=== PATIENT | female | born 2005 | race Caucasian/White ===

== ENCOUNTER 2023-10-06 01:01 | Inpatient (IN) | payer OTHER ==
[2023-10-06] VITALS (57 sets, daily range): BP systolic 98–134; BP diastolic 68–97; TEMP 97.8–98.4; O2SAT 98–100
[~2023-10-06] VITALS: Ht 170.2 cm; Wt 61.7 kg
[2023-10-06] MEDS ORDERED: SERT25TA PO (01:26)
[2023-10-06 01:54] LABS: BASOPHILS # (AUTO) 0.1 K/UL (0.0-0.2); BASOPHILS % (AUTO) 0.6 % (0.0-2.0); EOSINOPHILS # (AUTO) 0.1 K/uL (0.0-0.7); EOSINOPHILS % (AUTO) 1.1 % (0.0-7.0); HEMATOCRIT 37.7 % (31.2-41.9); HEMOGLOBIN 12.7 g/dL (10.9-14.3); LYMPHOCYTES % (AUTO) 33.5 % (20.5-74.5); MEAN CORPUSCULAR HGB CONC 34 g/dL (32.3-35.6); MONOCYTES # (AUTO) 0.9 K/uL (0.1-1.30); MONOCYTES % (AUTO) 9.5 % (0-11); NEUTROPHILS % (AUTO) 55.3 % (31.5-64.5); PLATELET COUNT (AUTO) 272 K/uL (179-408); RED BLOOD CELL COUNT(AUTO) 3.73 MIL/uL (3.63-4.92); RED CELL DISTRIBUTION WIDTH 13.9 % (12.3-17.7)
[2023-10-06 01:56] LABS: SITE, VBG VBG - N/A; VBG AaDO2 52.5 mmHg; VBG BASE EXCESS -0.3 mmol/L (-3-3); VBG HCO3 25.9 mmol/L (22-27); VBG MetHb 0.4 % (0.0-0.5); VBG O2HB 49.1 %; VBG PO2 < 40.5 mmHg (25.0-35.0); VBG TOTAL HEMOGLOBIN 14.6 G/dL (12.0-16.0)
[2023-10-06 01:57] LABS: DIFFERENTIAL COMMENT 1
[2023-10-06 01:58] LABS: CALCIUM 8.7 mg/dL (8.5-10.1); CARBON DIOXIDE 26 mmol/L (21-32); CHLORIDE 106 mmol/L (98-107); CREATININE 0.7 mg/dL (0.6-1.3); GLUCOSE 59 mg/dL (74-106); POTASSIUM 3.2 mmol/L (3.5-5.1); SODIUM SERUM 145 mmol/L (136-145); UREA NITROGEN, BLOOD 8 mg/dL (7-18)
[2023-10-06] MEDS: DEXTROSE 50% 50 ML DISP.SYRIN IV ONE (02:00)
[2023-10-06 02:02] LABS: ETHANOL 219 MG/DL (0-10)
[2023-10-06 02:03] LABS: ALANINE AMINOTRANSFERASE 41 U/L (14-59); ALBUMIN 3.7 g/dL (3.4-5.0); ALKALINE PHOSPHATASE 54 U/L (50-136); ASPARTATE AMINOTRANSFERASE 32 U/L (15-37); BILIRUBIN,DIRECT 0.1 mg/dL (0.0-0.2); BILIRUBIN,TOTAL 0.2 mg/dL (0.2-1.0); TOTAL PROTEIN, SERUM 7.1 g/dL (6.4-8.2)
[2023-10-06 02:05] LABS: ACETAMINOPHEN < 10.0 ug/mL (10-30)
[2023-10-06 02:07] LABS: LACTIC ACID 2.2 mmol/L (0.4-2.0)
[2023-10-06] MEDS ORDERED: DEXTROSE 50% 50 ML DISP.SYRIN ONE (02:08)
[2023-10-06] MEDS: ETOMIDATE 20 MG/10 ML VIAL IV ONE (02:25)
[2023-10-06] MEDS: SUCCINYLCHOLINE CHLORIDE 200 MG/10 ML VIAL IV ONE (02:26)
[2023-10-06] MEDS ORDERED: PROPOFOL 100 ML ONE ×2 (02:29→06:45)
[2023-10-06] MEDS: IV DEXTROSE 5%-0.9%NS+20MeqKCL 1,000 ML IV ONE (02:45)
[2023-10-06] MEDS: PROPOFOL 1,000 MG/100 ML BOTTLE IV ONE (02:59)
[2023-10-06] MEDS: LORAZEPAM 2 MG/1 ML VIAL IV ONE (03:03)
[2023-10-06] MEDS ORDERED: IV DEXTROSE 5%-0.9%NS+20MeqKCL 1,000 ML IV ONE (04:10)
[2023-10-06] MEDS ORDERED: ACETAMINOPHEN 650 MG SUPP.RECT RC PRN (04:15)
[2023-10-06] MEDS ORDERED: REMEDY ESSENTIAL ZINC PASTE 113 GM TP PRN (04:15)
[2023-10-06] MEDS ORDERED: ONDANSETRON 4 MG/2 ML VIAL IV PRN (04:15)
[2023-10-06 04:32] LABS: *BILIRUBIN,URIN NEGATIVE (NEGATIVE); *CLARITY,URINE CLEAR (CLEAR); *COLOR,URINE YELLOW (YELLOW); *KETONES,URINE NEGATIVE (NEGATIVE); *PROTEIN,URINE NEGATIVE (NEGATIVE); *UROBILINOGEN,URINE 0.2 E.U./dl (NORMAL); LEUKOCYTE ESTERASE ,URINE NEGATIVE (NEGATIVE); NITRITE, URINE NEGATIVE (NEGATIVE); PH,URINE 6.5 (5.0-8.0); UGLUCOSE TRACE (NEGATIVE)
[2023-10-06 04:33] LABS: *BLOOD, URINE TRACE (NEGATIVE); BACTERIA,URINE NONE SEEN /HPF (NONE SEEN); SQUAMOUS EPITHELIAL CELL,UR FEW /HPF (NONE SEEN); WBC,URINE 0-3 /HPF (0-3)
[2023-10-06 04:47] LABS: *AMPHETAMINE, URINE NEGATIVE (NEGATIVE); *BARBITURATE, URINE NEGATIVE (NEGATIVE); *BENZODIAZEPINE, URINE NEGATIVE (NEGATIVE); *CANNABINOID, URINE NEGATIVE (NEGATIVE); *COCCAINE, URINE NEGATIVE (NEGATIVE); *OPIATE, URINE NEGATIVE (NEGATIVE); *PHENCYCLIDINE SCREEN,URINE NEGATIVE (NEGATIVE)
[2023-10-06] MEDS ORDERED: ENOXAPARIN SODIUM 40 MG/0.4 ML DISP.SYRIN SQ ONE (04:50)
[2023-10-06] MEDS ORDERED: CHARCOAL ACTIVATED (WITHOUT SORBITOL) 50 G/240 ML BOTTLE ONE (04:50)
[2023-10-06] MEDS ORDERED: POTASSIUM CHLORIDE 20 MEQ POWDER PACKET ONE (04:51)
[2023-10-06] MEDS ORDERED: DOCUSATE SODIUM 100 MG/10 ML LIQUID UDC ONE (04:51)
[2023-10-06 04:56] LABS: FENTANYL, URINE NEGATIVE (NEGATIVE)
[2023-10-06] MEDS: CHARCOAL ACTIVATED (WITHOUT SORBITOL) 50 G/240 ML BOTTLE GT ONE (05:07)
[2023-10-06] MEDS: ENOXAPARIN SODIUM 40 MG/0.4 ML DISP.SYRIN SQ SCH (05:08)
[2023-10-06] MEDS: DOCUSATE SODIUM 100 MG/10 ML LIQUID UDC NG ONE (05:08)
[2023-10-06] MEDS: POTASSIUM CHLORIDE 20 MEQ POWDER PACKET GT ONE (05:08)
[2023-10-06] MEDS ORDERED: MIDAZOLAM HCL 2 MG/2 ML VIAL ONE (05:20)
[2023-10-06] MEDS: MIDAZOLAM HCL 2 MG/2 ML VIAL IV ONE (05:45)
[2023-10-06 05:52] LABS: *URINE HCG, QUAL NEGATIVE (NEGATIVE)
[2023-10-06] MEDS ORDERED: MAGNESIUM SULFATE/D5W 100 ML ONE ×2 (06:13→07:31)
[2023-10-06] MEDS: MAGNESIUM SULFATE/D5W 100 ML IV SCH (06:21)
[2023-10-06] MEDS: PANTOPRAZOLE SODIUM 40 MG VIAL IV SCH (10:32)
[2023-10-06] MEDS: PROPOFOL 100 ML IV PRN (12:19)
[2023-10-06] MEDS: LORAZEPAM 2 MG/1 ML VIAL IV PRN (14:00)
[2023-10-06] MEDS: IV DEXTROSE 5%-0.9%NS+20MeqKCL 1,000 ML IV PRN (15:04)
[2023-10-07] VITALS (43 sets, daily range): BP systolic 90–141; BP diastolic 48–103; TEMP 97.6–99.1; O2SAT 94–100
[2023-10-07 04:58] LABS: BASOPHILS % (AUTO) 0.4 % (0.0-2.0); EOSINOPHILS # (AUTO) 0.1 K/uL (0.0-0.7); EOSINOPHILS % (AUTO) 1.4 % (0.0-7.0); HEMATOCRIT 34.5 % (31.2-41.9); HEMOGLOBIN 11.3 g/dL (10.9-14.3); LYMPHOCYTES # (AUTO) 1.9 K/uL (0.8-4.8); LYMPHOCYTES % (AUTO) 19.7 % (20.5-74.5); MEAN CORPUSCULAR HEMOGLOBIN 33.2 uug (24.7-32.8); MEAN CORPUSCULAR HGB CONC 33 g/dL (32.3-35.6); MEAN CORPUSCULAR VOLUME 101.8 fL (75.5-95.3); MONOCYTES % (AUTO) 10.9 % (0-11); NEUTROPHILS # (AUTO) 6.5 K/uL (1.8-8.9); NEUTROPHILS % (AUTO) 67.6 % (31.5-64.5); PLATELET COUNT (AUTO) 197 K/uL (179-408); RED BLOOD CELL COUNT(AUTO) 3.39 MIL/uL (3.63-4.92); RED CELL DISTRIBUTION WIDTH 14.1 % (12.3-17.7); WHITE BLOOD COUNT (AUTO) 9.6 K/uL (3.8-11.8)
[2023-10-07 05:08] LABS: DIFFERENTIAL COMMENT 1
[2023-10-07 05:11] LABS: CALCIUM 8.4 mg/dL (8.5-10.1); CREATININE 0.8 mg/dL (0.6-1.3); MAGNESIUM 1.8 mg/dL (1.8-2.4); PHOSPHOROUS 4.1 mg/dL (2.5-4.9)
[2023-10-07 06:11] LABS: ABG BASE EXCESS -2.4 mmol/L (-2.0-2.0); ABG HCO3 21.4 mmol/L (22.0-26.0); ABG PCO2 33.7 mmHg (35.0-48.0); ABG PO2 149.5 mmHg (75.0-100.0); ABG TOTAL HEMOGLOBIN 12.3 G/dL (12.0-16.0); COHb 0.3 % (0.0-3.9); MetHb 0.7 % (0.0-1.5); O2Hb 97.8 % (94.0-97.0); VT, ABG 500 mL
[2023-10-07] MEDS: DOCUSATE SODIUM 100 MG/10 ML LIQUID UDC NG SCH (08:59)
[2023-10-07] MEDS: SERTRALINE HCL 50 MG TABLET PO SCH (14:34)
[2023-10-07] MEDS: CHLORDIAZEPOXIDE HCL 25 MG CAPSULE PO SCH (17:19)
[2023-10-07] MEDS: OLANZAPINE 10 MG VIAL IM ONE (20:15)
[2023-10-07] MEDS: METRONIDAZOLE 500 MG/NS 100ML 500 MG in PREMIXED 1 EACH IV SCH (22:09)
[2023-10-08] VITALS (14 sets, daily range): BP systolic 95–130; BP diastolic 72–89; TEMP 98–98.4; O2SAT 95–100
[2023-10-08 05:04] LABS: BASOPHILS % (AUTO) 0.6 % (0.0-2.0); EOSINOPHILS # (AUTO) 0.2 K/uL (0.0-0.7); EOSINOPHILS % (AUTO) 2.1 % (0.0-7.0); HEMATOCRIT 37.8 % (31.2-41.9); HEMOGLOBIN 12.7 g/dL (10.9-14.3); LYMPHOCYTES # (AUTO) 1.9 K/uL (0.8-4.8); MEAN CORPUSCULAR HEMOGLOBIN 33.5 uug (24.7-32.8); MEAN CORPUSCULAR HGB CONC 34 g/dL (32.3-35.6); MEAN CORPUSCULAR VOLUME 99.7 fL (75.5-95.3); MONOCYTES # (AUTO) 0.9 K/uL (0.1-1.30); MONOCYTES % (AUTO) 11.5 % (0-11); NEUTROPHILS # (AUTO) 4.8 K/uL (1.8-8.9); NEUTROPHILS % (AUTO) 61.8 % (31.5-64.5); PLATELET COUNT (AUTO) 196 K/uL (179-408); RED BLOOD CELL COUNT(AUTO) 3.79 MIL/uL (3.63-4.92); RED CELL DISTRIBUTION WIDTH 13.4 % (12.3-17.7); WHITE BLOOD COUNT (AUTO) 7.7 K/uL (3.8-11.8)
[2023-10-08 05:10] LABS: DIFFERENTIAL COMMENT 1
[2023-10-08 05:16] LABS: CALCIUM 8.7 mg/dL (8.5-10.1); CREATININE 0.7 mg/dL (0.6-1.3); MAGNESIUM 1.8 mg/dL (1.8-2.4); PHOSPHOROUS 4.1 mg/dL (2.5-4.9); POTASSIUM 3.4 mmol/L (3.5-5.1)
[2023-10-08] MEDS: BENZOCAINE/MENTH/CETYLPYRD LOZENGE MM PRN (08:44)
[2023-10-08] MEDS: NICOTINE 21 MG/24HR PATCH TD SCH (10:48)
[2023-10-08] MEDS ORDERED: OLANZAPINE 2.5 MG TABLET PO PRN (11:30)
[2023-10-08] MEDS: OLANZAPINE 10 MG VIAL IM ONE (11:34)
[2023-10-08] MEDS: CHLORDIAZEPOXIDE HCL 25 MG CAPSULE PO SCH (14:19)
[2023-10-08] MEDS ORDERED: AMPH25CA PO (16:35)
[2023-10-08] MEDS ORDERED: SERT50TA PO (16:35)
[2023-10-08] MEDS: OLANZAPINE 2.5 MG TABLET PO SCH (20:34)
[2023-10-08] MEDS ORDERED: OLANZAPINE 5 MG TABLET PO SCH (21:00)
[2023-10-08] MEDS: IV NS 1000 ML 1,000 ML IV PRN (22:08)
[2023-10-09] MEDS: PANTOPRAZOLE SODIUM 40 MG TABLET.DR PO SCH (06:15)
[2023-10-09 07:21] LABS: BASOPHILS % (AUTO) 0.8 % (0.0-2.0); EOSINOPHILS # (AUTO) 0.2 K/uL (0.0-0.7); EOSINOPHILS % (AUTO) 3.9 % (0.0-7.0); HEMATOCRIT 37.2 % (31.2-41.9); HEMOGLOBIN 12.4 g/dL (10.9-14.3); LYMPHOCYTES # (AUTO) 1.6 K/uL (0.8-4.8); MEAN CORPUSCULAR HEMOGLOBIN 33.6 uug (24.7-32.8); MEAN CORPUSCULAR HGB CONC 33 g/dL (32.3-35.6); MEAN CORPUSCULAR VOLUME 101.2 fL (75.5-95.3); MONOCYTES # (AUTO) 0.7 K/uL (0.1-1.30); MONOCYTES % (AUTO) 13.6 % (0-11); NEUTROPHILS # (AUTO) 2.5 K/uL (1.8-8.9); NEUTROPHILS % (AUTO) 49.7 % (31.5-64.5); PLATELET COUNT (AUTO) 207 K/uL (179-408); RED BLOOD CELL COUNT(AUTO) 3.68 MIL/uL (3.63-4.92); RED CELL DISTRIBUTION WIDTH 13.7 % (12.3-17.7); WHITE BLOOD COUNT (AUTO) 5.1 K/uL (3.8-11.8)
[2023-10-09] MEDS ORDERED: LORAZEPAM 2 MG/1 ML VIAL IV PRN (07:30)
[2023-10-09 07:32] LABS: CREATININE 0.8 mg/dL (0.6-1.3); MAGNESIUM 2.1 mg/dL (1.8-2.4); PHOSPHOROUS 3.8 mg/dL (2.5-4.9); POTASSIUM 4.2 mmol/L (3.5-5.1)
[2023-10-09 07:41] LABS: DIFFERENTIAL COMMENT 1
[2023-10-09] MEDS: OLANZAPINE 2.5 MG TABLET PO SCH (08:51)
[2023-10-09] MEDS ORDERED: LORAZEPAM 1 MG TABLET PO PRN (10:00)
[2023-10-09 11:35] VITALS: BP 110/63; TEMP 97.9; O2SAT 99
[2023-10-09] MEDS ORDERED: METRONIDAZOLE 500 MG TABLET PO SCH (14:00)
[2023-10-09 18:42] VITALS: BP 115/72; TEMP 98.1; O2SAT 98
[2023-10-09 20:18] VITALS: BP 131/76; TEMP 98.4; O2SAT 99
[2023-10-09] MEDS: CHLORDIAZEPOXIDE HCL 25 MG CAPSULE PO SCH (20:58)
[2023-10-10 05:09] VITALS: BP 125/70; TEMP 98; O2SAT 95
[2023-10-10 08:00] VITALS: BP 120/67; TEMP 98.2; O2SAT 100
[2023-10-10] MEDS: ENSURE WITH FIBER 237 ML LIQUID (CHOCOLATE) PO SCH (14:27)
[2023-10-10] MEDS: OLANZAPINE 2.5 MG TABLET PO PRN (21:40)
[2023-10-11 06:00] VITALS: BP 115/80; TEMP 98; O2SAT 95
[2023-10-11] MEDS: CHLORDIAZEPOXIDE HCL 25 MG CAPSULE PO SCH (08:58)
[2023-10-11] MEDS ORDERED: CHLORDIAZEPOXIDE HCL 25 MG CAPSULE PO SCH (09:00)
== END 2023-10-11 16:30 | disposition home or self-care (01) | DRG 917 ==
LOC: ER 01:03 → CCU 07:39 → TRANSITION 08:26 → CCU 10:53 → MEDSURG3 10-08 17:11
PROC: 5A1935Z Respiratory Ventilation, Less than 24 Consecutive Hours (ICD-10-PCS; principal; 2023-10-06)
PROC: 0BH17EZ Insertion of Endotracheal Airway into Trachea, Via Natural or Artificial Opening (ICD-10-PCS; 2023-10-06)
DX: T45.0X2A Poisoning by antiallergic and antiemetic drugs, intentional self-harm, initial encounter (principal); G92.8 Other toxic encephalopathy; J96.01 Acute respiratory failure with hypoxia; E87.20 Acidosis, unspecified; T51.0X2A Toxic effect of ethanol, intentional self-harm, initial encounter; F10.129 Alcohol abuse with intoxication, unspecified; Y90.7 Blood alcohol level of 200-239 mg/100 ml; Y92.039 Unspecified place in apartment as the place of occurrence of the external cause; D75.89 Other specified diseases of blood and blood-forming organs; E87.6 Hypokalemia; F17.210 Nicotine dependence, cigarettes, uncomplicated; F41.0 Panic disorder [episodic paroxysmal anxiety]; F17.290 Nicotine dependence, other tobacco product, uncomplicated; Z91.51 Personal history of suicidal behavior; Z81.8 Family history of other mental and behavioral disorders; I51.7 Cardiomegaly; E16.2 Hypoglycemia, unspecified; S61.511A Laceration without foreign body of right wrist, initial encounter; X78.9XXA Intentional self-harm by unspecified sharp object, initial encounter; R94.31 Abnormal electrocardiogram [ECG] [EKG]; J02.9 Acute pharyngitis, unspecified
CPT/HCPCS: 36415; 36600; 71045; 83605; 83735; 84100; 84478; 84703; 85025; 93005; 94003; A4606; A4663; G0378; G0480; J0330; J1650; J2060; J2250; J2358; J2470; J3475; J3490; J7040